=== PATIENT | male | born 1990 | race Caucasian/White ===

== ENCOUNTER 2017-10-05 21:56 | Emergency (ER) | payer BC ==
[2017-10-05] MEDS ORDERED: XYLOCAINE 2% HCL 20 ML MDV ONE (22:25)
[2017-10-05] MEDS ORDERED: XYLOCAINE 2% HCL 20 ML MDV IJ ONE (22:30)
[2017-10-05 22:36] VITALS: BP 126/98; PULSE 118; O2SAT 100
[2017-10-05] MEDS ORDERED: Norco 10/325 MG Tablet ONE (23:42)
[2017-10-05] MEDS ORDERED: Norco 10/325 MG Tablet PO ONE ×2 (23:55)
--- NOTE | 2017-10-06 00:13 | ERPHSYRPT ---
- History of Present Illness Time Seen by Provider: 10/05/17 22:45 Source: patient Exam Limitations: clinical condition Patient Subjective Stated Complaint: hand was shut in car door on the right pointer finger Triage Nursing Assessment: Pt A&O x3, pt stated that he was talking to some friends and had his hands on the top of their car door when the door shut and they began to pull away when he yanked it out of the door, Physician History: PATIENT CAUGHT HIS RIGHT INDEX FINGER IN CAR DOOR AND COMPLAINS OF CRUSH INJURY TO INDEX FINGER ASSOCIATED WITH PAIN DISCOMFORT. Occurred: just prior to arrival Method of Injury: direct blow Quality: constant, throbbing Extremities Pain Location: 2nd finger: right Modifying Factors: Improves With: movement Associated Symptoms: none Allergies/Adverse Reactions: No Known Drug Allergies Allergy (Unverified 01/09/15 04:55) Hx Tetanus, Diphtheria Vaccination/Date Given: Yes Hx Influenza Vaccination/Date Given: No Hx Pneumococcal Vaccination/Date Given: No - Review of Systems Constitutional: No Symptoms, No Fever, No Chills Respiratory: No Cough, No Dyspnea Cardiac: No Chest Pain, No Edema, No Syncope Abdominal/Gastrointestinal: No Abdominal Pain, No Nausea, No Vomiting, No Diarrhea Genitourinary Symptoms: No Dysuria Musculoskeletal: Injury, Joint Pain, No Back Pain, No Neck Pain Skin: No Rash Neurological: No Dizziness, No Focal Weakness, No Sensory Changes Psychological: No Symptoms Endocrine: No Symptoms All Other Systems: Reviewed and Negative - Past Medical History Pertinent Past Medical History: No Other Medical History: ADD - Past Surgical History Past Surgical History: Yes Musculoskeletal: Orthopedic Surgery - Social History Smoking Status: Current every day smoker How long have you smoked: 2 Exposure to second hand smoke: No Drug Use: none Patient Lives Alone: Yes Significant Family History: no pertinent family hx - Nursing Vital Signs Nursing Vital Signs: Initial Vital Signs Temperature 98.6 F 10/05/17 22:36 Pulse Rate 118 H 10/05/17 22:36 Blood Pressure 126/98 10/05/17 22:36 O2 Sat by Pulse Oximetry 100 10/05/17 22:36 Pain Scale Pain Intensity 8 - Physical Exam General Appearance: mild distress Hand Exam: laceration (THERE IS A 2CM LACERATION OVER PROXIMAL PHALANGX, NO EVIDENCE OF FOREIGN BODY, FULL RANGE OF MOTION), nail injury (PARTIALLY DETACHED PROXIMAL NAIL), soft tissue tenderness SpO2 Interpretation: normal SpO2: 100 Oxygen Delivery: Room Air Procedures - Laceration/Wound Repair Right Other Wound Location: Right (INDEX FINGER) Wound Length (cm): 1.3 Wound's Depth, Shape: superficial, linear Wound Explored: clean Irrigated: Yes Hibiclens Prep: Yes Anesthesia: digital block, 2% Lidocaine Volume Anesthetic (ccs): 5 Suture Size/Type: 4-0 Number of Sutures: 8 Sterile Dressing Applied?: Yes Type of Splint Applied: ALUMINUM FOAM SPLINT, TUBE GAUZE DRESSING - Radiology Exams Right Hand X-ray Interpretation: Interpreted by me, Negative, No Fracture Ordered Tests: Active Orders 24 hr Category Date Time Status HAND (MINIMUM 3 VIEWS) Stat Exams 10/05/17 22:31 Taken Medication Summary Discontinued Medications Generic Name Dose Route Start Last Admin Trade Name Dipeshq PRN Reason Stop Dose Admin Hydrocodone Bitart/Acetaminophen Confirm 10/05/17 23:42 [place] 10/325 Mg Tablet Administered 10/05/17 23:43 Dose 1 tab .ROUTE .STK-MED ONE Hydrocodone Bitart/Acetaminophen 1 tab 10/05/17 23:55 [place] 10/325 Mg Tablet PO 10/05/17 23:56 STAT ONE Hydrocodone Bitart/Acetaminophen 2 tab 10/05/17 23:55 [place] 10/325 Mg Tablet PO 10/05/17 23:56 SENT HOME W/ PATIENT ONE Lidocaine HCl Confirm 10/05/17 22:25 Xylocaine 2% Hcl 20 Ml Mdv Administered 10/05/17 22:26 Dose 5 ml .ROUTE .STK-MED ONE Lidocaine HCl 5 ml 10/05/17 22:30 10/05/17 22:37 Xylocaine 2% Hcl 20 Ml Mdv IJ 10/05/17 22:31 5 ml STAT ONE Administration - Progress Progress: pain not gone completely Counseled pt/family regarding: need for follow-up - Departure Time of Disposition: 00:20 Departure Disposition: Home Clinical Impression: EXCISION RIGHT FINGER NAIL, LACERATION RIGHT INDEX FINGER Condition: Stable Critical Care Time: No Referrals: DEE DEE CULLEN [Primary Care Provider] - Additional Instructions: ANTIBIOTIC AUGMENTIN 875MG TWICE DAILY FOR 10 DAYS. NORCO 10/325 EVERY 4 HOURS FOR PAIN. REMOVE GAUZE DRESSING AFTER 12 HOURS THEN CLEANSE WITH SOAP AND WATER TWICE DAILY THEN APPLY BACITRACIN OINTMENT FOLLOWED BY LOOSE BANDAID AND ALUMINUM SPLINT. WATCH FOR SIGNS OF INFECTION REDNESS, SWELLING AND DRAINAGE. HAVE STITCHES REMOVE AT 12 DAYS. RETURN TO EMERGENCY FOR WOUND RECHECK ON 2017. WORK RESTRICTION NO USE OF RIGHT HAND UNTIL 10/16/2017. Prescriptions: Hydrocodone/APAP 10/325 mg [[place] 10/325 MG Tablet] 1 tab PO Q4H PRN PRN # 10 tablet MDD 4 PRN Reason: Pain Amox Tr/Potass Clav. 875 mg [Augmentin 875-125 Tablet] 875 mg PO BID #20 tablet
[2017-10-06] MEDS ORDERED: Norco 10/325 MG Tablet ONE (00:25)
--- NOTE | 2017-10-06 09:00 | XRAY ---
Indication: Second digit pain following car door injury. Comparison: None 3 views of the right hand demonstrates second finger soft tissue swelling. No other bony, articular, or soft tissue abnormalities.
== END 2017-10-06 00:35 | disposition home or self-care (01) ==
LOC: ED 21:56
PROC: 0HQFXZZ Repair Right Hand Skin, External Approach (ICD-10-PCS; principal; 2017-10-06)
DX: S61.310A Laceration without foreign body of right index finger with damage to nail, initial encounter (principal); W23.1XXA Caught, crushed, jammed, or pinched between stationary objects, initial encounter
CPT/HCPCS: 12001; 73130; 96372; 99284; A9270-GY

== ENCOUNTER 2017-10-16 16:49 | Emergency (ER) | payer BC ==
[2017-10-16 17:08] VITALS: BP 135/86; PULSE 100; O2SAT 98
[2017-10-16] MEDS ORDERED: XYLOCAINE 2% HCL 20 ML MDV ONE (17:19)
[2017-10-16] MEDS ORDERED: Xylocaine-Mpf 2% 5 Ml Vial IJ ONE (17:27)
--- NOTE | 2017-10-16 17:55 | ERPHSYRPT ---
- History of Present Illness Time Seen by Provider: 10/16/17 17:20 Source: patient Exam Limitations: clinical condition Patient Subjective Stated Complaint: Suture Removal Right Index Finger. Triage Nursing Assessment: Pt presents to the ED for suture removal. Pt has swelling noted to right index finger, no redness, drainage or other complaints at this time. No distress noted at this time. Pt states he slammed finger in car door on 10/05/2017. Physician History: PATIENT SUSTAINED CRUSH INJURY TO HIS RIGHT INDEX FINGER ON 10/05/2017 WITH PARTIAL DETACHED FINGER NAIL, HER FOR SUTURE REMOVAL TODAY. DENIES DRAINAGE FROM FINGER, REDNESS . Occurred: days ago Method of Injury: direct blow (CRUSH INJURY) Severity of Pain-Max: none Severity of Pain-Current: none Extremities Pain Location: 2nd finger: right Modifying Factors: Improves With: movement Associated Symptoms: none Allergies/Adverse Reactions: No Known Drug Allergies Allergy (Unverified 01/09/15 04:55) Hx Tetanus, Diphtheria Vaccination/Date Given: Yes Hx Influenza Vaccination/Date Given: Yes Hx Pneumococcal Vaccination/Date Given: No Immunizations Up to Date: Yes - Review of Systems Constitutional: No Symptoms Musculoskeletal: Other (SUTURE REMOVAL INDEX FINGER) - Past Medical History Pertinent Past Medical History: No Other Medical History: ADD - Past Surgical History Past Surgical History: Yes Musculoskeletal: Orthopedic Surgery - Social History Smoking Status: Current every day smoker How long have you smoked: 2 Exposure to second hand smoke: No Drug Use: none Patient Lives Alone: Yes Significant Family History: no pertinent family hx - Nursing Vital Signs Nursing Vital Signs: Initial Vital Signs Temperature 98.3 F 10/16/17 17:00 Pulse Rate 100 H 10/16/17 17:00 Respiratory Rate 16 10/16/17 17:00 Blood Pressure 135/86 10/16/17 17:00 O2 Sat by Pulse Oximetry 98 10/16/17 17:00 Pain Scale Pain Intensity 1 - Physical Exam General Appearance: no apparent distress Hand Exam: soft tissue tenderness (RIGHT INDEX FINGER SUTURES INTACT MIDDLE PHALANGX VOLAR ASPECT, NO ERYTHEMA OR DRAINAGE NOTED. DISTAL PHALANGX SUTURES INTACT DISTAL NAIL BED, NO SWELLING OR ERYTHEMA) Neuro/Tendon Exam: normal sensation, normal motor functions SpO2 Interpretation: normal SpO2: 98 Oxygen Delivery: Room Air Ordered Tests: Medication Summary Discontinued Medications Generic Name Dose Route Start Last Admin Trade Name Freq PRN Reason Stop Dose Admin Lidocaine HCl Confirm 10/16/17 17:19 Xylocaine 2% Hcl 20 Ml Mdv Administered 10/16/17 17:20 Dose 1 ml .ROUTE .STK-MED ONE Lidocaine HCl 4 ml 10/16/17 17:27 10/16/17 17:30 Xylocaine-Mpf 2% 5 Ml Vial IJ 10/16/17 17:28 4 ml STAT ONE Administration - Progress Progress Note: 10/16/17 17:55 DIGITAL BLOCK 2% LIDOCAINE 3 ML, SUTURE REMOVAL Counseled pt/family regarding: diagnosis, need for follow-up - Departure Time of Disposition: 18:00 Departure Disposition: Home Clinical Impression: SUTURE REMOVAL RIGHT INDEX FINGER Condition: Stable Critical Care Time: No Referrals: DEE DEE CULLEN [Primary Care Provider] - Additional Instructions: CONTINUE TO APPLY BACITRACIN OINTMENT OVER WOUND 2-3 TIMES DAILY FOR 1 WEEK. APPLY LOOSE BANDAID OVER TIP OF FINGER. TYLENOL OR MOTRIN NEEDED FOR PAIN. CONSULT YOUR PRIMARY CARE PROVIDER FOR FOLLOWUP.
== END 2017-10-16 18:10 | disposition home or self-care (01) ==
LOC: ED 16:49
DX: Z48.02 Encounter for removal of sutures (principal)
CPT/HCPCS: 96372; 99283; G0463

== ENCOUNTER 2019-03-28 09:06 | Day surgery (SDC) | payer MEDICAID, OTHER ==
--- NOTE | 2019-03-26 13:42 | HP ---
DATE OF SURGERY: 03/28/2019 ANTICIPATED PROCEDURE: Umbilical hernia with mesh. HISTORY OF PRESENT ILLNESS: The patient has moderate sized symptomatic umbilical hernia. PAST MEDICAL HISTORY: ALLERGIES: NONE. MEDICATIONS: Zyprexa, Celexa, acid custody assistant, ibuprofen. PAST SURGICAL HISTORY: None recent. SOCIAL HISTORY: Positive tobacco. Negative ETOH. FAMILY HISTORY: Negative. REVIEW OF SYSTEMS: CVS: Negative. PULMONARY: Negative. PHYSICAL EXAMINATION: VITAL SIGNS: Normal. CHEST: Clear. COR: Regular. ABDOMEN: Umbilical hernia. IMPRESSION: Symptomatic umbilical hernia. PLAN: Repair.
[~2019-03-28 09:06] MED LIST: DIPRIVAN 200 MG/20 ML IV ONE; Lactated Ringers 1,000 ML IV ONE; SUBLIMAZE 100 MCG/2 ML ONE; Sensorcaine 0.25% 10 ML ONE
[2019-03-28] MEDS ORDERED: TYLENOL 325 MG PO ONE (09:07)
[2019-03-28] MEDS ORDERED: Lactated Ringers 1,000 ML IV SCH (09:30)
[2019-03-28] MEDS ORDERED: CEFAZOLIN 2 GM-D5W BAG** 2 GM/50 ML ML IV SCH (09:30)
[2019-03-28] MEDS ORDERED: Sensorcaine 0.25% 10 ML ONE (10:32)
[2019-03-28] MEDS ORDERED: KEFZOL 1 GM ONE (10:32)
[2019-03-28] MEDS ORDERED: Zemuron 100 MG/10 ML ONE ×2 (10:33→10:46)
[2019-03-28] MEDS ORDERED: Zofran 4 MG/2 ML VIAL ONE (10:33)
[2019-03-28] MEDS ORDERED: Decadron 4 MG INJ ONE (10:33)
[2019-03-28] MEDS ORDERED: TORAdol 30 mg Injection ONE (10:33)
[2019-03-28] MEDS ORDERED: LOPRESSOR 5 MG/5 ML INJECTION IV ONE (10:37)
[2019-03-28] MEDS ORDERED: BRIDION 200MG/2ML IV ONE (11:00)
[2019-03-28] MEDS ORDERED: TORAdol 30 mg Injection IV PRN (12:03)
[2019-03-28 12:32] VITALS: O2SAT 97
[2019-03-28 14:42] VITALS: BP 144/81; PULSE 81
--- NOTE | 2019-03-28 14:42 | OP ---
SURGERY DATE/TIME: 03/28/2019 1026 PREOPERATIVE DIAGNOSIS: Symptomatic umbilical hernia. POSTOPERATIVE DIAGNOSIS: Incarcerated umbilical hernia. PROCEDURE: Repair of incarcerated umbilical herniorrhaphy primary repair. SURGEON: Bandar Walden M.D. ANESTHESIA: General. COMPLICATIONS: None. CONDITION: Stable. INDICATION: A patient with a very painful umbilical hernia. He was seen in the office. He was scheduled. DESCRIPTION OF PROCEDURE: He was taken to surgery. The hernia was marked preoperatively. 0.25% Marcaine was saturated in a field block. Curvilinear incision. There were three places of incarcerated fat and these were all taken down. The hernia defect was 1 cm x 8 mm. It was totally closed with three suture #0 Prolene which were all very deliberately placed inverting the knots. Approximately nicely without tension approximated with 3-0 Vicryl. Skin closed with 4-0 Vicryl and Steri-Strips applied. Sterile dressing applied. The patient tolerated the procedure satisfactorily.
== END 2019-03-28 12:50 ==
LOC: SDC 09:06
PROVIDERS: ATTEND Surgery
DX: K42.0 Umbilical hernia with obstruction, without gangrene (principal)
CPT/HCPCS: J0690; J1100; J1885; J2405; J2704; J3010; L0625; A9270-GY